=== PATIENT | female | born 1975 | race Caucasian/White ===

== ENCOUNTER 2025-02-13 16:07 | Emergency (ER) | payer SELFPAY ==
[~2025-02-13] VITALS: Ht 157.4 cm; Wt 58.1 kg
[~2025-02-13 16:07] MED LIST: ATIVAN0.5 MG PO; BACTRIM DS 8001 TA1 PO; CIPRO500 MG PO; FLAGYL500 MG PO; TRAMADOL HCL50 MG PO
[2025-02-13 16:20] VITALS: BP 168/85
[2025-02-13 16:59] LABS: BASO # 0.1 10*3/uL (0.0-0.1); BASO % 0.5 % (0.0-1.0); EOS # 0.3 10*3/uL (0.0-0.4); EOS % 2.5 % (1.0-4.0); MEAN CELL VOLUME 84.8 fl (81.0-99.0); MEAN CORPUSCULAR HGB 29.0 pg (27.0-31.0); MEAN PLATELET VOLUME 11.5 fl (9.6-12.3); MONO # 0.5 10*3/uL (0.1-1.0); MONO % 4.5 % (3.0-9.0); NEUT # 5.7 10*3/uL (2.3-7.9); NEUT % 53.4 % (47.0-73.0); NUCLEATED RED BLOOD CELL 0.0 % (0.0-0.0); NUCLEATED RED BLOOD CELL 0.0 10*3/uL (0.0-0.0); PLATELET COUNT AUTOMATED 112 10*3/uL (130-400); RED CELL DISTRI WIDTH 12.6 % (0-14.5)
[2025-02-13 17:16] LABS: BUN 17 mg/dl (9-23)
[2025-02-13] MEDS ORDERED: Cyclobenzaprine Hydrochlorid 10 MG TAB PO ONE (18:35)
[2025-02-13] MEDS ORDERED: CYCLOBENZAPRINE5 M3 PO (18:36)
[2025-02-13] MEDS ORDERED: TEGRETOL-XR 10100 MG PO (18:36)
== END 2025-02-13 19:06 | disposition home or self-care (01) ==
LOC: ED 16:07
PROVIDERS: Internal Medicine
DX: G50.0 Trigeminal neuralgia (principal); M62.838 Other muscle spasm; M25.512 Pain in left shoulder; M25.522 Pain in left elbow; Z88.6 Allergy status to analgesic agent; Z88.1 Allergy status to other antibiotic agents; Z88.8 Allergy status to other drugs, medicaments and biological substances; Z79.2 Long term (current) use of antibiotics; Z98.890 Other specified postprocedural states; Z90.49 Acquired absence of other specified parts of digestive tract; Z90.89 Acquired absence of other organs; Z90.710 Acquired absence of both cervix and uterus